=== PATIENT | male | born 1990 | race Caucasian/White ===

== ENCOUNTER 2017-04-29 15:55 | Emergency (ER) | payer OTHER ==
[~2017-04-29] VITALS: Ht 188 cm; Wt 79.9 kg
[2017-04-29 16:11] VITALS: BP 143/100
[2017-04-29] MEDS ORDERED: Ketorolac 30mg Inj IM ONE (16:45)
[2017-04-29] MEDS ORDERED: DiphenhydrAMINE 50mg/ml Inj IM ONE (16:45)
[2017-04-29] MEDS ORDERED: SUMATRIPTAN SU100 MG PO (18:34)
--- NOTE | 2017-04-29 18:35 | Emergency Room Report ---
History of Present Illness General Chief Complaint: Headache Present Illness HPI 27 y/o male with headache x 2 days. Assoc sxs include unilateral left sided headache assoc w/ photophobia and nausea. States he has hx of migraine CARNEY 8 years ago but states in the past he was able to sleep it off or it'll improve with ibuprofen. States he's taking 200mg ibuprofen Q2H x 2 dosages w/o improvement of sxs today. States he's never had any imaging performed on his head in the past. Patient states that this headache is different than his previous headaches due to the severity of the headache. Denies any recent illness, numbness, ALOC, blurred vision, neck pain, neck stiffness, unilateral weakness, facial deficits, rashes, or dysphonia. Allergies: Coded Allergies: No Known Allergies (Unverified , 04/29/17) Patient History Past Medical History: see triage record Past Surgical History: none Pertinent Family History: none Reviewed Nursing Documentation: PMH: Agreed, PSxH: Agreed Nursing Documentation-PMH Past Medical History: No Stated History Review of Systems All Other Systems: negative except mentioned in HPI Physical Exam Vital Signs Date Time Temp Pulse Resp B/P (MAP) Pulse Ox O2 Delivery O2 Flow Rate FiO2 04/29/17 16:11 98.1 74 18 143/100 98 Room Air Sp02 EP Interpretation: reviewed, normal General Appearance: no apparent distress, alert, GCS 15, non-toxic Head: normocephalic, atraumatic Eyes: bilateral eye normal inspection, bilateral eye PERRL ENT: hearing grossly normal, normal pharynx, no angioedema, normal voice, uvula midline Neck: full range of motion, no meningismus, no bony tend, supple/symm/no masses Respiratory: chest non-tender, lungs clear, normal breath sounds, speaking full sentences Cardiovascular #1: regular rate, rhythm, no edema, normal capillary refill Musculoskeletal: back normal, gait/station normal, normal range of motion, non- tender Neurologic: alert, oriented x3, responsive, card grader III-XII nml as tested, motor strength/tone normal, DTRs symmetric, sensory intact, cerebellar normal, normal gait, speech normal, no pronator Psychiatric: judgement/insight normal, memory normal, mood/affect normal, no suicidal/homicidal ideation Skin: normal color, no rash, warm/dry, well hydrated Medical Decision Making PA Attestation Dr. Girard is my supervising physician with whom patient management has been discussed with. Diagnostic Impression: Primary Impression: Migraine headache without aura Qualified Codes: G43.009 - Migraine without aura, not intractable, without status migrainosus ER Course Pt. presents to the ED c/o headache Ddx considered but are not limited to CVA, drug abuse, meningitis, migraine, tension CARNEY, cluster CARNEY, trigeminal neuralgia, transverse myelitis, rhabdo, acute renal failure, hypertension emergency, intracranial hemorrhage, concussion , skull fracture, spinal fracture Vital signs: are WNL, pt. is afebrile H&PE: migraine heaache ORDERS: CT Head w/o contrast was ED INTERVENTIONS: Toradol 30, Benadryl 50 mg improvement of pain DISCHARGE: At this time pt. is stable for d/c to home. Will provide printed patient care instructions, and any necessary prescriptions. Care plan and follow up instructions have been discussed with the patient prior to discharge. CT/MRI/US Diagnostic Results CT/MRI/US Diagnostic Results : Imaging Test Ordered: CT Head w/o contrast Impression Normal Head CT Last Vital Signs Date Time Temp Pulse Resp B/P (MAP) Pulse Ox O2 Delivery O2 Flow Rate FiO2 04/29/17 16:11 98.1 74 18 143/100 98 Room Air Disposition: HOME, SELF-CARE Condition: Stable Scripts Sumatriptan Succinate (SUMATRIPTAN SUCCINATE) 100 Mg Tablet 0.5 TAB PO TWICE A DAY for 3 Days, #9 TAB Prov: ANDREA APARICIO P.A. 04/29/17 Referrals: NOT CHOSEN [facility]/MD,REFERRING (PCP) Patient Instructions: Migraine Headache Additional Instructions: Take medications as directed. Follow up with your PCP within 3-5 days for further evaluation if symptoms continue. Advised patient to go to the ER immediately if you experience a headache that is sudden and becomes severe within a few seconds or minutes, or that could be described as "the worst headache of your life", or if headache is severe and occurs with a fever or stiff neck, occurs with a seizure, personality changes, confusion, or passing out, begins quickly after strenuous exercise or minor injury, or if headache is new and occurs with weakness, numbness, or difficulty seeing. While migraine headaches can sometimes cause these symptoms, you should be evaluated urgently the first time these symptoms appear. Return sooner if sxs worsen or do not improve. ANDREA APARICIO Apr 29, 2017 18:35
[2017-04-29 18:45] VITALS: BP 116/65
--- NOTE | 2017-04-30 08:52 | Diagnostic Imaging Report ---
Indication: Headache Technique: Continuous helical CT scanning of the head was performed without intravenous contrast material. Axial and coronal 5 mm sections were generated. Dose: Total Dose Length Product - DLP [address] Dose Index - CTDIvol(s) 70.38 mGy. Automated exposure control was utilized for dose reduction. Comparison:None. Findings: The ventricular system is normal in size and configuration. There is no shift of midline structures. No abnormal extra-axial fluid collections are noted. There is no evidence of intracerebral bleeding. No other abnormal high or low density areas are noted within the brain. Impression: Normal CT scan of the head without contrast material. The above report is concordant with preliminary reading by [employer] . The CT scanner at [facility] is accredited by the [employer] and the scans are performed using protocols designed to limit radiation exposure to as low as reasonably achievable to attain images of sufficient resolution adequate for diagnostic evaluation.
== END 2017-04-29 18:45 | disposition home or self-care (01) ==
LOC: EDBD 15:55 → EMR 17:12
DX: G43.009 Migraine without aura, not intractable, without status migrainosus (principal)
CPT/HCPCS: 70450; 96372; 99284; J1200; J1885